=== PATIENT | male | born 1955 | race Caucasian/White ===

== ENCOUNTER → 2016-09-07 | Outpatient (CLI) | payer BC ==
--- NOTE | 2016-09-07 09:34 | RAD ---
Chest, 2 views, 09/07/2016: History: Productive cough Comparison is made to a study from 04/06/2016. The heart size and pulmonary vascularity are normal. No pulmonary infiltrates are seen. There is no evidence of pleural fluid. Moderate spurring is present in the spine. IMPRESSION: No acute cardiopulmonary abnormality is detected.
== END | disposition home or self-care (01) ==
LOC: DXRADRC 07:46
PROVIDERS: ATTEND Physician Assistant Medical
DX: R05 Cough (principal)
CPT/HCPCS: 71020

== ENCOUNTER → 2020-01-07 | Outpatient (CLI) | payer BC | LOC: LAB 08:05 | DX: U07.1 COVID-19 (principal) | CPT/HCPCS: U0003 ==

== ENCOUNTER → 2021-06-27 | Outpatient (CLI) | payer BC, MEDICARE ==
--- NOTE | 2021-06-27 10:58 | RAD ---
Single AP view of the pelvis with AP and frog-leg lateral views of the right hip were obtained. History: Reason: CHRONIC RT HIP PAIN / Spl. Instructions: / History: Comparison: none. No fracture is seen about the right proximal femur acetabulum. The femoral head is located in the ac etabulum. 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 There is subchondral sclerosis and cyst formation identified in the acetabular roof. Electronically signed by: Fitz Child MD (06/27/2021 10:55 AM) [id number]
== END ==
LOC: RAD 10:16
PROVIDERS: ATTEND Physician Assistant Medical
DX: M16.0 Bilateral primary osteoarthritis of hip (principal); M25.851 Other specified joint disorders, right hip
CPT/HCPCS: 73502